=== PATIENT | male | born 1955 | race Caucasian/White ===

== ENCOUNTER 2025-06-09 10:18 | Outpatient (AMB) | payer OTHER, SELFPAY ==
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
[2025-06-09 10:29] VITALS: BP 123/75; PULSE 69
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
--- OUTSIDE RECORDS SUMMARY | 2025-06-09 12:39 | XMS_ITS | Encounter Summary ---
Author Organization [facility] Address [address] [place] [address] Care Team Providers Care Babysitter Name Role Phone Carmen Saleh MD Primary Care Prov ider Encounter Details Date Type Department Care Team (Late st Contact Info) Description 04/23/2025 Lab Requisition [facility] Lab [address] [facility] [place] [address] Fantasma Pretty PA [address] [place] [phone] Gross hematuria Social History Tobacco Use Types Packs/Day Years Used Date Smoking Tobacco: Never Smokeless Tobacco: Never Alcohol Use Standard Drinks/Week Comments Yes 0 (1 standard drink = 0.6 oz pur e alcohol) Sex and Gender Information Value Date Recorded Sex Assigned at Not on file Legal Sex Male 4:54 AM EST Gender Identity Not on file Sexual Orientation Not on file documented as of this encounter Plan of Treatment Upcoming Encounters Date Type Department Care Team (Late st Contact Info) Description 08/27/2025 8:45 AM EST Office Visit Adult Medicine [address] [phone] Carmen Saleh MD [address] [place] [address] documented as of this encounter Procedures Procedure Name Priority Date/Time Associated Diagnosis Comments NON-GYNECOLOGIC CYTOLOGY Routine 04/15/2025 12:00 AM EDT Gross hematuria documented in this encounter Results * Non-gynecologic cytology (04/15/2025 12:00 AM EDT) Final Diagnosis A. Urine, Voided, [id number]: Negative for high grade urothelial carcinoma. Results of [employer] fluorescence in situ hybridization (FISH) testing: CEP3: Normal CEP7: Normal CEP17: Normal LSI 9p21: Normal Interpretation: Normal profile Controls stained appropriately. Note: The results are intended as a screening device and should be interpreted in association with other clinical and pathological findings. 05/06/2025 4:48 PM EDT [facility] Specimen A Adequacy Satisfactory for evaluation 05/06/2025 4:48 PM EDT [facility] Clinical Information Gross hematuria R31.0 Urine Cytology/FISH (now) 05/06/2025 4:48 PM EDT [facility] Gross Description A. Urine, Voided, [id number]: Received one ThinPrep slide for cytology and one ThinPrep slide for [employer]ion FISH 05/06/2025 4:48 PM EDT [facility] Disclaimer Unless otherwise specified, all tissue is 10% NB formalin fixed and paraffin embedded. Technical pathology services provided by [facility] at [address] [place] [address] [address], [place] [address] (CLIA #[id number]/Clarice Bull MD, Roll Coating Machine Operator) 05/06/2025 4:48 PM EDT [facility] Urine Urine specimen from urethra / Unknown 04/15/2025 04/23/2025 10:54 AM EDT us Fantasma LOTT LAB CYTOLOGY ORDERABL ES Final Result [facility] [address] [place] [address], documented in this encounter Visit Diagnoses Diagnosis Gross hematuria documented in this encounter Care Teams Babysitter Relationship Specialty Start Date End Date Carmen Saleh MD [address] [place] [address] [phone] PCP - General Internal Medicine 08/10/24 documented as of this encounter
--- OUTSIDE RECORDS SUMMARY | 2025-06-09 12:39 | XMS_ITS | Encounter Summary ---
Author Organization [facility] Address [address] [place] [address] Care Team Providers Care Cosmetologist Apprentice Name Role Phone Carmen Saleh MD Primary Care Prov ider Encounter Details Date Type Department Care Team (Late Contact Info) Description 05/05/2025 Lab Requisition [facility] - [facility] Lab [address] [facility] [place] [phone] Mariusz Chapin MD [address] [place] [address] Gross hematuria Social History Tobacco Use Types [...] 8:45 AM EST Office Visit Adult Medicine [address] [phone] Carmen Saleh MD [address] [place] [address] documented as of this encounter Procedures Procedure Name Priority Date/Time Associated Diagnosis Comments NON-GYNECOLOGIC CYTOLOGY Routine 05/02/2025 12:00 AM EDT Gross hematuria documented in this encounter Results * Non-gynecologic cytology (05/02/2025 12:00 AM EDT) Final Diagnosis A. Urine, Voided, (): Negative for high grade urothelial carcinoma. Acute inflammation present. 06/04/2025 5:07 PM EDT [facility] Specimen A Adequacy Satisfactory for evaluation 06/04/2025 5:07 PM EDT [facility] Clinical Information Gross hematuria R31.0 Urine Cytology (now) 06/04/2025 5:07 PM EDT [facility] Gross Description A. Urine, Voided, (): Received is one ThinPrep slide for cytology. 06/04/2025 5:07 PM EDT [facility] Disclaimer Unless otherwise specified, all tissue is 10% NB formalin fixed and paraffin embedded. Technical pathology services provided by [facility] at [address], [place] [address] (CLIA #[id number]/Anival Bull MD, Mold Filling Operator) 06/04/2025 5:07 PM EDT [facility] Urine Urine specimen from urethra / Unknown 05/02/2025 05/05/2025 2:48 PM EDT us Mariusz Chapin MD LAB CYTOLOGY ORDERABLES Fin al Result [facility] [address] [place] [address], documented in this encounter Visit Diagnoses Diagnosis Gross hematuria documented in this encounter Care Teams Cosmetologist Apprentice Relationship Specialty Start Date End Date Carmen Saleh MD [address] [place], [place] PCP - General Internal Medicine 08/10/24 documented as of this encounter
== END 2025-06-09 10:58 | disposition home or self-care (01) ==
LOC: HO.PMC 10:18
PROVIDERS: PCP Internal Medicine; Visit Provider Nurse Practitioner Family
DX: M25.511 Pain in right shoulder (principal); G89.29 Other chronic pain; Z98.890 Other specified postprocedural states; Z87.828 Personal history of other (healed) physical injury and trauma; Z89.021 Acquired absence of right finger(s); R20.0 Anesthesia of skin; R20.2 Paresthesia of skin
CPT/HCPCS: 99204

== ENCOUNTER → 2025-06-09 10:18 | Outpatient (BNVA) | payer OTHER, SELFPAY | PROVIDERS: PCP Internal Medicine; Visit Provider Nurse Practitioner Family | DX: M25.511 Pain in right shoulder (principal); G89.29 Other chronic pain; R20.0 Anesthesia of skin; R20.2 Paresthesia of skin; Z89.021 Acquired absence of right finger(s); Z87.828 Personal history of other (healed) physical injury and trauma | CPT/HCPCS: 99202 ==

== ENCOUNTER 2025-07-30 12:25 | Outpatient (REF) | payer OTHER, SELFPAY ==
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
--- OUTSIDE RECORDS SUMMARY | 2025-07-30 15:04 | XMS_ITS | Clinical Summary ---
Author Organization [facility] Address [address] [place] [address] Phone Care Team Providers Care Smelter Operator Name Role Phone Carmen Saleh MD Primary Care Prov ider Allergies No known active allergies Medications Mapap, acetaminophen, 500 mg capsule Take 2 capsules (1,000 mg total) by mouth 3 (three) times a day if needed for mild pain or moderate pain. 90 capsule 2 03/14/2025 Active gabapentin (NEURONTIN) 100 mg capsule Take 1 capsule (100 mg total) by mouth 3 (three) times a day. 180 capsule 2 03/14/2025 Active fluticasone propionate (FLONASE) 50 mcg/actuation nasal spray INSTILL 2 SPRAYS INTO BOTH NOSTRILS ONCE DAILY 48 mL 1 04/07/2025 Active cetirizine (ZyrTEC) 10 mg tablet TAKE 1 TABLET BY MOUTH 1 TIME EACH DAY. 90 tablet 1 04/21/2025 Active losartan-hydroC HLOROthiazide (HYZAAR) 100-25 mg per tablet Take 1 tablet by mouth 1 (one) time each day. 90 tablet 05/14/2025 Active amLODIPine (NORVASC) 10 mg tablet Take 1 tablet (10 mg total) by mouth 1 (one) time each day. 90 tablet 05/14/2025 Active Active Problems Problem Noted Date Diagnosed Date S/P surgical amputation of finger, right 025 Lumbar disc disorder 08/27/2024 Overview (08/27/2024): fusion in 2001 and 2004 in [place] Lumbar spondylosis 04/25/2023 Overview (08/27/2024): Last Assessment [...] weakness. He is s/p L4-5 fusion in [place] 2003, states on and off over the years he has had to do physical therapy for flareups of back pain but it always seemed to help him. Patient had lumbar spine x-rays 03/04/2023 [facility] that show good fusion construct, hardware intact, [...] Renal cyst 03/28/2022 Overview (08/27/2024): Follows with [facility] urology. Type 2 diabetes mellitus wit hout complication, without long-term current use of insulin ([facility] V24, [facility] V28) 02/03/2022 Microalbuminuria 02/02/2022 Varicose veins of both lower extremities 021 Class 1 obesity due to exces s calories with serious comorbidity and body mass index (BMI) of 30.0 to 30.9 in adult 07/29/2020 Insomnia 03/15/2017 Major depression 03/15/2017 Allergic rhinitis 01/16/2017 Overview (08/27/2024): On immunotherapy with surveyor at [facility] BPH (benign prostatic hyperplasia) 01/16/2017 Overview (08/27/2024): [...] 8:00 AM EDT Office Visit Adult Medicine [address] [phone] Lorrie Modi PA Type 2 diabetes mellitus without complication, without long-term current use of insulin ([facility] V24, [facility] V28) (Primary Dx); Primary hypertension; Microalbuminuria; Class [...] determinants of health (SDoH) 05/05/2025 Lab Requisition [facility] - Main Lab [address] [facility] [place] [address] Mariusz Chapin MD Gross hematuria from Last 3 Months Immunizations Immunization Administration Dates Next Due Influenza Quadravalent, MDCK [...] History Surgery Date Site/Laterality Comments BACK SURGERY RI ARTHRD ANT INTERBODY MIN DSC LUMBAR; 2001, 2003 COLONOSCOPY 01/10/11 PROCEDURE: HISTORICAL COLONOSCOPY; COMMENT: normal; repeat in ten years HAND SURGERY 08/14/2024 Left ORIF left wrist Medical History Medical History Date Comments History of tuberculosis DX:Histo ry of tuberculosis; COMMENT: treated in 1990 Lumbar disc disorder DX:Lumbar d isc disorder; COMMENT: 2001 and L4-5 fusion 2003 in [place] Hematuria 01/14/2016 DX:Hematuria; CO MMENT: Per transfer [...] for your loved ones. For example, child development assistant or elderly care for an older adult? [...] Date Recorded What is your living situation? Unrecognized valu e 05/14/2025 Sex and Gender Information Value Date [...] Team (Late st Contact Info) Description 08/27/2025 8:30 AM EST Office Visit Adult Medicine [facility] [address] [place] [address] Lorrie Modi PA [address] [place], [place] Health Maintenance Due Date Last Done Comments Diabetes: Annual Retina Eye Exam 1967 RSV Immunization Adult Patients (1 - Risk 50-74 years 1-dose series) 2007 Zoster Vaccines (2 of 2) 07/03/2022 05/08/2022 [...] Routine 05/02/2025 12:00 AM EDT Gross hematuria URINE ALBUMIN [...] Acute inflammation present. 06/04/2025 5:07 PM EDT [facility] Specimen A Adequacy Satisfactory for evaluation 06/04/2025 5:07 PM EDT [facility] Clinical Information Gross hematuria R31.0 Urine Cytology (now) 06/04/2025 5:07 PM EDT [facility] Gross Description A. Urine, Voided, (): Received is one ThinPrep slide for cytology. 06/04/2025 5:07 PM EDT [facility] Disclaimer Unless otherwise specified, all tissue is 10% NB formalin fixed and paraffin embedded. Technical pathology services provided by [facility]rology at [facility] [address] [place] [address] (CLIA #[id number]/Anival Bull MD, Smocking Machine Operator) 06/04/2025 5:07 PM EDT [facility] Urine Urine specimen from urethra / Unknown 05/02/2025 05/05/2025 2:48 PM EDT us Mariusz Chapin MD LAB CYTOLOGY ORDERABLES Fin al Result [facility] [address] [place] [address], * Urine Albumin Creatinine Ratio (05/30/2024) Pathologist [facility] Urine Albumin Creatinine Ratio abstracted Result [facility] Provider HEALTH MAINTENANCE Final Result * Annual BMP Blood Test (05/30/2024) Pathologist [facility] Annual BMP Blood Test abstracted Result [facility] Provider HEALTH MAINTENANCE Final Result * Hemoglobin A1c (05/30/2024) [facility] Hemoglobin A1C 6.5 <=6.5 % Blood Venous blood specimen / Unknown Result [facility] Provider LAB BLOOD ORDERABLES Didi l Result * Depression Screening (04/05/2024) Pathologist [facility] Depression Screening abstracted Result [facility] Provider HEALTH MAINTENANCE Final Result * Lipid panel (11/20/2023) [facility] LDL/HDL Ratio 2 0 - 4 Triglycerides 82 0 - 150 mg/dL Cholesterol 157 0 - 200 mg/dL HDL 68 >=40 mg/dL LDL Cholesterol 73 0 - 100 mg/dL Blood Venous blood specimen / Unknown Result [facility] Provider LAB BLOOD ORDERABLES Didi l Result * Colonoscopy (09/13/2021) [facility] Colonoscopy abstracted, no interpretation Anatomical Region Laterality Modality Other Result [facility] Provider HEALTH MAINTENANCE Final Result * Hepatitis C Screening (02/16/2016) [facility] Hepatitis C Screening abstracted Result [facility] Provider HEALTH MAINTENANCE Final Result from Last 3 Months or Most Recently Relevant to Health Maintenance Insurance * Guarantor: Franky Rao Account Type Relation to Patient Date of Phone Billing Address Personal/Family Self 1955 [address] [place] [address] [facility] MEDICAID [place]ER [id number] Care Teams Smelter Operator Relationship Specialty Start Date End Date Carmen Saleh MD [address] [place] [phone] PCP - General Internal Medicine 08/10/24
--- OUTSIDE RECORDS SUMMARY | 2025-07-30 15:04 | XMS_ITS | Encounter Summary ---
Author Organization [facility] Address [address] [place] [address] Care Team Providers Care Cloud Software Engineer Name Role Phone Carmen Saleh MD Primary Care Prov ider Encounter Details Date Type Department Care Team (Late st Contact Info) Description 04/23/2025 Lab Requisition [facility] - Main Lab [address] [facility] [place] [address] Fantasma Pretty PA [address] [place] [phone] Gross hematuria Social History Tobacco Use Types [...] 8:30 AM EST Office Visit Adult Medicine [address] [phone] Lorrie Modi PA [address] [place], [place] documented as of this encounter Procedures Procedure Name Priority Date/Time Associated Diagnosis Comments NON-GYNECOLOGIC CYTOLOGY Routine 04/15/2025 12:00 AM EDT Gross hematuria documented in this encounter Results * Non-gynecologic cytology (04/15/2025 12:00 AM EDT) Final Diagnosis A. Urine, Voided, [id number]: Negative for high grade urothelial carcinoma. Results of UroVysion fluorescence in situ hybridization (FISH) testing: CEP3: Normal CEP7: Normal CEP17: Normal LSI 9p21: Normal Interpretation: Normal profile Controls stained appropriately. Note: The results are intended as a screening device and should be interpreted in association with other clinical and pathological findings. 05/06/2025 4:48 PM EDT [facility] Specimen A Adequacy Satisfactory for evaluation 05/06/2025 4:48 PM EDT [facility] Clinical Information Gross hematuria R31.0 Urine Cytology/FISH (now) 05/06/2025 4:48 PM EDT [facility] Gross Description A. Urine, Voided, [id number]: Received one ThinPrep slide for cytology and one ThinPrep slide for UroVysion FISH 05/06/2025 4:48 PM EDT [facility] Disclaimer Unless otherwise specified, all tissue is 10% NB formalin fixed and paraffin embedded. Technical pathology services provided by [facility] Urology at [address] [place] [address] [address], [place] [address] (CLIA #[id number]/Clarice Bull MD, Sales And Service Change Leader) 05/06/2025 4:48 PM EDT [facility] Urine Urine specimen from urethra / Unknown 04/15/2025 04/23/2025 10:54 AM EDT us Fantasma LOTT LAB CYTOLOGY ORDERABL ES Final Result [facility] [address] [place] [address], documented in this encounter Visit Diagnoses Diagnosis Gross hematuria documented in this encounter Care Teams Cloud Software Engineer Relationship Specialty Start Date End Date Carmen Saleh MD [address] [place] [phone] PCP - General Internal Medicine 08/10/24 documented as of this encounter
--- OUTSIDE RECORDS SUMMARY | 2025-07-30 15:04 | XMS_ITS | Encounter Summary ---
Author Organization [facility] Address [address] [place] [address] Care Team Providers Care Interventional Tech Name Role Phone Carmen Saleh MD Primary Care Prov ider Encounter Details Date Type Department Care Team (Late st Contact Info) Description 05/05/2025 Lab Requisition [facility] - Main Lab [address] [facility] [place] [phone] Mariusz Chapin MD [address] [place] [address] Gross hematuria Social History Tobacco Use Types [...] 8:30 AM EST Office Visit Adult Medicine [address] [phone] Lorrie Modi PA [address] [place] [address] documented as of this encounter Procedures Procedure Name Priority Date/Time Associated Diagnosis Comments NON-GYNECOLOGIC CYTOLOGY Routine 05/02/2025 12:00 AM EDT Gross hematuria documented in this encounter Results * Non-gynecologic cytology (05/02/2025 12:00 AM EDT) Final Diagnosis A. Urine, Voided, (): Negative for high grade urothelial carcinoma. Acute inflammation present. 06/04/2025 5:07 PM EDT [facility] Specimen A Adequacy Satisfactory for evaluation 06/04/2025 5:07 PM EDT [facility] Clinical Information Gross hematuria R31.0 Urine Cytology (now) 06/04/2025 5:07 PM EDT [facility] Gross Description A. Urine, Voided, (): Received is one ThinPrep slide for cytology. 06/04/2025 5:07 PM EDT [facility] Disclaimer Unless otherwise specified, all tissue is 10% NB formalin fixed and paraffin embedded. Technical pathology services provided by [facility] Urology at [address], [place] [address] (CLIA #[id number]/Anival Bull MD, Souvenir And Novelty Maker) 06/04/2025 5:07 PM EDT [facility] Urine Urine specimen from urethra / Unknown 05/02/2025 05/05/2025 2:48 PM EDT us Mariusz Chapin MD LAB CYTOLOGY ORDERABLES Fin al Result [facility]) [facility] [address] [place] [address], documented in this encounter Visit Diagnoses Diagnosis Gross hematuria documented in this encounter Care Teams Interventional Tech Relationship Specialty Start Date End Date Carmen Saleh MD [address] [place] [phone] PCP - General Internal Medicine 08/10/24 documented as of this encounter
== END 2025-07-30 12:26 | disposition home or self-care (01) ==
LOC: HO.NEURO 12:25
PROVIDERS: PCP Internal Medicine; Visit Provider Nurse Practitioner Family
DX: G89.29 Other chronic pain (principal); M25.511 Pain in right shoulder; R20.0 Anesthesia of skin; R20.2 Paresthesia of skin; Z89.021 Acquired absence of right finger(s); Z87.828 Personal history of other (healed) physical injury and trauma; Z98.890 Other specified postprocedural states
CPT/HCPCS: 95886; 95911

== ENCOUNTER → 2025-07-30 12:29 | Outpatient (BNV) | payer OTHER, SELFPAY | PROVIDERS: PCP Internal Medicine; Visit Provider Physical Medicine & Rehabilitation | DX: G56.02 Carpal tunnel syndrome, left upper limb (principal); G54.9 Nerve root and plexus disorder, unspecified | CPT/HCPCS: 95886; 95911 ==

== ENCOUNTER 2025-09-04 06:25 | Outpatient (REF) | payer OTHER, SELFPAY ==
--- OUTSIDE RECORDS SUMMARY | 2025-09-04 06:27 | XMS_ITS | Encounter Summary ---
Author Organization [facility] Address [address] [place] [address] Care Team Providers Care Party Plan Sales Unit Advisor Name Role Phone Carmen Saleh MD Primary Care Prov ider Encounter Details Date Type Department Care Team (Late st Contact Info) Description 05/05/2025 Lab Requisition [facility] - Main Lab [address] [place] [phone] Mariusz Chapin MD [address] [place] [address] Gross hematuria Social History Tobacco Use Types [...] as of this encounter Plan of Treatment Not on file documented as of this encounter Procedures Procedure Name Priority Date/Time Associated Diagnosis Comments NON-GYNECOLOGIC CYTOLOGY Routine 05/02/2025 12:00 AM EDT Gross hematuria documented in this encounter Results * Non-gynecologic cytology (05/02/2025 12:00 AM EDT) Final Diagnosis A. Urine, Voided, ([id number]): Negative for high grade urothelial carcinoma. Acute inflammation present. 06/04/2025 5:07 PM EDT [facility] LAB at 1707 EDT Specimen A Adequacy Satisfactory for evaluation 06/04/2025 5:07 PM EDT [facility] Clinical Information Gross hematuria R31.0 Urine Cytology (now) 06/04/2025 5:07 PM EDT [facility] Gross Description A. Urine, Voided, ([id number]): Received is one ThinPrep slide for cytology. 06/04/2025 5:07 PM EDT [facility] Disclaimer Unless otherwise specified, all tissue is 10% NB formalin fixed and paraffin embedded. Technical pathology services provided by [facility] Urology at [address] [facility] [address], [place] [address] (CLIA #[id number]/Anival Bull MD, Brush And Broom Clipper) 06/04/2025 5:07 PM EDT [facility] Urine Urine specimen from urethra / Unknown 05/02/2025 05/05/2025 2:48 PM EDT us Mairusz Chapin MD LAB CYTOLOGY ORDERABLES Fin al Result [facility] [address] [place] [address], documented in this encounter Visit Diagnoses Diagnosis Gross hematuria documented in this encounter Care Teams Party Plan Sales Unit Advisor Relationship Specialty Start Date End Date Carmen Saleh MD [address] [place] [phone] PCP - General Internal Medicine 08/10/24 documented as of this encounter
--- OUTSIDE RECORDS SUMMARY | 2025-09-04 06:27 | XMS_ITS | Clinical Summary ---
Author Organization [facility] Address [address] [place] [address] Phone Care Team Providers Care Yarn Packer Name Role Phone Carmen Saleh MD Primary [...] weakness. He is s/p L4-5 fusion in [place] 2003, states on and off over the years he has had to do physical therapy for flareups of back pain but it always seemed to help him. Patient had lumbar spine x-rays 03/04/2023 [facility] that show good fusion construct, hardware intact, [...] Renal cyst 03/28/2022 Overview (08/27/2024): Follows with [facility] urology. Type 2 diabetes mellitus wit hout complication, without long-term current use of insulin 02/03/2022 Microalbuminuria 02/02/2022 Varicose veins of both lower extremities 021 Class 1 obesity due to exces s calories with serious comorbidity and body mass index (BMI) of 30.0 to 30.9 in adult 07/29/2020 Insomnia 03/15/2017 Major depression 03/15/2017 Allergic rhinitis 01/16/2017 Overview (08/27/2024): On immunotherapy with fulfillment specialist at [facility] BPH (benign prostatic hyperplasia) 01/16/2017 Overview (08/27/2024): Follows with Back pain 04/06/2016 Fatty liver 04/06/2016 Hematuria 01/14/2016 Overview (08/27/2024): Per transfer note had cystoscopy and bladder US / neg urine cytology 2014 HTN (hypertension) 01/14/2016 Lipoma 11/29/2010 Resolved Problems Problem Noted Date Diagnosed Date Resolved Date Overweight (BMI 25.0-29.9) 05/14/2025 0 05/14/2025 Immunizations Immunization Administration Dates Next Due Influenza [...] History Surgery Date Site/Laterality Comments BACK SURGERY [place] ANT INTERBODY MIN DSC LUMBAR; 2001, 2003 COLONOSCOPY 01/10/11 PROCEDURE: HISTORICAL COLONOSCOPY; COMMENT: normal; repeat in ten years HAND SURGERY 08/14/2024 Left ORIF left wrist Medical History Medical History Date Comments History of tuberculosis DX:Histo ry of tuberculosis; COMMENT: treated in 1990 Lumbar disc disorder DX:Lumbar d isc disorder; COMMENT: 2001 and L4-5 fusion 2003 in [place] Hematuria 01/14/2016 DX:Hematuria; CO MMENT: Per transfer [...] care for your loved ones. For example, early childhood teacher assistant or elderly care for an older [...] on file Sexual Orientation Not on file Last Filed Vital Signs Vital Sign Reading [...] 05/14/2025 7:49 AM EDT Plan of Treatment Health Maintenance Due Date Last Done Comments [...] Procedure Name Priority Date/Time Associated Diagnosis Comments URINE ALBUMIN CREATININE RATIO Routine 05/30/2024 ANNUAL BMP BLOOD TEST Routine 05/30/2024 HEMOGLOBIN A1C Routine 05/30/2024 DEPRESSION SCREENING Routine 04/05/2024 LIPID PANEL Routine 11/20/2023 COLONOSCOPY Routine 09/13/2021 HEPATITIS C SCREENING Routine 02/16/2016 from Last 3 Months or Most Recently Relevant to Health Maintenance Results * Urine Albumin Creatinine Ratio (05/30/2024) Pathologist [facility] Urine Albumin Creatinine Ratio abstracted Result [facility] Provider HEALTH MAINTENANCE Final Result * Annual BMP Blood Test (05/30/2024) Pathologist [facility] Annual BMP Blood Test abstracted Result [facility] Provider HEALTH MAINTENANCE Final Result * Hemoglobin A1c (05/30/2024) [facility] Hemoglobin A1C 6.5 <=6.5 % Blood Venous blood specimen / Unknown Result [facility] Provider LAB BLOOD ORDERABLES Didi l Result * Depression Screening (04/05/2024) Pathologist [facility] Depression Screening abstracted Result [facility] Provider HEALTH MAINTENANCE Final Result * Lipid panel (11/20/2023) [facility] LDL/HDL Ratio 2 0 - 4 Triglycerides 82 0 - 150 mg/dL Cholesterol 157 0 - 200 mg/dL HDL 68 >=40 mg/dL LDL Cholesterol 73 0 - 100 mg/dL Blood Venous blood specimen / Unknown Historical Provider LAB BLOOD ORDERABLES Didi l Result * Colonoscopy (09/13/2021) Pathologist [facility] Colonoscopy abstracted, no interpretation Anatomical Region Laterality Modality Other Historical Provider HEALTH MAINTENANCE Final Result * Hepatitis C Screening (02/16/2016) [facility] Hepatitis C Screening abstracted Historical Provider HEALTH MAINTENANCE Final Result from Last 3 Months or Most Recently Relevant to Health Maintenance Insurance * Guarantor: Franky Rao Account Type Relation to Patient Date of Phone Billing Address Personal/Family Self 1955 [address] [place] [address] [facility] MEDICAID [place] [id number] Care Teams Yarn Packer Relationship Specialty Start Date End Date Carmen Saleh MD [address] [place] [address] PCP - General Internal Medicine 08/10/24
--- OUTSIDE RECORDS SUMMARY | 2025-09-04 06:27 | XMS_ITS | Encounter Summary ---
Author Organization [employer] Address [address] [place] [address] Care Team Providers Care Bag Cutter Name Role Phone Carmen Saleh MD Primary Care Prov ider Encounter Details Date Type Department Care Team (Late st Contact Info) Description 04/23/2025 Lab Requisition [facility] - Main Lab [address] [facility] [place] [place] [phone] Fantasma Pretty PA [address] [place] [phone] Gross hematuria Social History Tobacco Use Types [...] AM EDT) Final Diagnosis A. Urine, Voided, [id number]: Negative for high grade urothelial carcinoma. Results of UroVysion fluorescence in situ hybridization (FISH) testing: CEP3: Normal CEP7: Normal CEP17: Normal LSI 9p21: Normal Interpretation: Normal profile Controls stained appropriately. Note: The results are intended as a screening device and should be interpreted in association with other clinical and pathological findings. 05/06/2025 4:48 PM EDT [facility] at 1648 EDT Specimen A Adequacy Satisfactory for evaluation 05/06/2025 4:48 PM EDT [facility] Clinical Information Gross hematuria R31.0 Urine Cytology/FISH (now) 05/06/2025 4:48 PM EDT [facility] Gross Description A. Urine, Voided, [id number]: Received one ThinPrep slide for cytology and one ThinPrep slide for UroVysion FISH 05/06/2025 4:48 PM EDT [facility] Disclaimer Unless otherwise specified, all tissue is 10% NB formalin fixed and paraffin embedded. Technical pathology services provided by [facility] at [address] [facility] [address], [place] [address] (CLIA #[id number]/Clarice Bull MD, Machinist Brake) 05/06/2025 4:48 PM EDT [facility] Urine Urine specimen from urethra / Unknown 04/15/2025 04/23/2025 10:54 AM EDT us Fantasma LOTT LAB CYTOLOGY ORDERABL ES Final Result [facility] [address] [place] [address], documented in this encounter Visit Diagnoses Diagnosis Gross hematuria documented in this encounter Care Teams Bag Cutter Relationship Specialty Start Date End Date Carmen Saleh MD [address] [place] [phone] PCP - General Internal Medicine 08/10/24 documented as of this encounter
== END 2025-09-04 06:26 | disposition home or self-care (01) ==
LOC: CF 06:25
PROVIDERS: Visit Provider Internal Medicine
DX: G56.41 Causalgia of right upper limb (principal)
CPT/HCPCS: 64510; 77003; J2795

== ENCOUNTER 2025-09-04 11:43 | Outpatient (AMB) | payer OTHER, SELFPAY ==
[2025-09-04 11:53] VITALS: BP 110/70; PULSE 79; RESP 16; O2SAT 97
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
[2025-09-04 12:11] VITALS: BP 110/70; PULSE 73; RESP 16; O2SAT 97
--- OUTSIDE RECORDS SUMMARY | 2025-09-04 15:27 | XMS_ITS | Clinical Summary ---
Author Organization [facility] Address [address] [place] [address] Phone Care Team Providers Care Clinical Research Technician Name Role Phone Carmen Saleh MD Primary [...] weakness. He is s/p L4-5 fusion in [place] 2003, states on and off over the years he has had to do physical therapy for flareups of back pain but it always seemed to help him. Patient had lumbar spine x-rays 03/04/2023 [facility] that show good fusion construct, hardware [...] Renal cyst 03/28/2022 Overview (08/27/2024): Follows with [facility] urology. Type 2 diabetes mellitus wit hout complication, without long-term current use of insulin 02/03/2022 Microalbuminuria 02/02/2022 Varicose veins of both lower extremities 021 Class 1 obesity due to exces s calories with serious comorbidity and body mass index (BMI) of 30.0 to 30.9 in adult 07/29/2020 Insomnia 03/15/2017 Major depression 03/15/2017 Allergic rhinitis 01/16/2017 Overview (08/27/2024): On immunotherapy with wire bender at [facility] BPH (benign prostatic hyperplasia) 01/16/2017 Overview (08/27/2024): [...] History Surgery Date Site/Laterality Comments BACK SURGERY [place] ARTHRD ANT INTERBODY MIN DSC LUMBAR; 2001, 2003 COLONOSCOPY 01/10/11 PROCEDURE: HISTORICAL COLONOSCOPY; COMMENT: normal; repeat in ten years HAND SURGERY 08/14/2024 Left ORIF left wrist Medical History Medical History Date Comments History of tuberculosis DX:Histo ry of tuberculosis; COMMENT: treated in 1990 Lumbar disc disorder DX:Lumbar d isc disorder; COMMENT: 2001 and L4-5 fusion 2003 in [place] Hematuria 01/14/2016 DX:Hematuria; CO MMENT: Per transfer [...] for your loved ones. For example, child welfare worker or elderly care for an older adult? [...] * Urine Albumin Creatinine Ratio (05/30/2024) Pathologist [facility] Urine Albumin Creatinine Ratio abstracted Result [facility] Provider HEALTH MAINTENANCE Final Result * Annual BMP Blood Test (05/30/2024) Pathologist [facility] Annual BMP Blood Test abstracted Result [facility] Provider HEALTH MAINTENANCE Final Result * Hemoglobin A1c (05/30/2024) [facility] Hemoglobin A1C 6.5 <=6.5 % Blood Venous blood specimen / Unknown Result [facility] Provider LAB BLOOD ORDERABLES Didi l Result * Depression Screening (04/05/2024) Pathologist [facility] Depression Screening abstracted Result [facility] Provider HEALTH MAINTENANCE Final Result * Lipid panel (11/20/2023) [facility] LDL/HDL Ratio 2 0 - 4 Triglycerides 82 0 - 150 mg/dL Cholesterol 157 0 - 200 mg/dL HDL 68 >=40 mg/dL LDL Cholesterol 73 0 - 100 mg/dL Blood Venous blood specimen / Unknown Historical Provider LAB BLOOD ORDERABLES Didi l Result * Colonoscopy (09/13/2021) Pathologist [facility] Colonoscopy abstracted, no interpretation Anatomical Region Laterality Modality Other Historical Provider HEALTH MAINTENANCE Final Result * Hepatitis C Screening (02/16/2016) [facility] Hepatitis C Screening abstracted Historical Provider HEALTH MAINTENANCE Final Result from Last 3 Months or Most Recently Relevant to Health Maintenance Insurance * Guarantor: Franky Rao Account Type Relation to Patient Date of Phone Billing Address Personal/Family Self 1955 [address] [place] [address] [facility] MEDICAID [place] [id number] Care Teams Clinical Research Technician Relationship Specialty Start Date End Date Carmen Saleh MD [address] [place] [phone] PCP - General Internal Medicine 08/10/24
--- OUTSIDE RECORDS SUMMARY | 2025-09-04 15:27 | XMS_ITS | Encounter Summary ---
Author Organization [facility] Address [address] [place] [address] Care Team Providers Care Protection Officer Name Role Phone Carmen Saleh MD Primary Care Prov ider Encounter Details Date Type Department Care Team (Late st Contact Info) Description 05/05/[address] [facility] - Main Lab [address] [place] [phone] Mariusz Chapin MD [address] [place] [address] Gross hematuria Social History Tobacco Use Types [...] AM EDT) Final Diagnosis A. Urine, Voided, ([id number]): Negative for high grade urothelial carcinoma. Acute inflammation present. 06/04/2025 5:07 PM EDT [facility] HOSPITAL LAB at 1707 EDT Specimen A Adequacy Satisfactory for evaluation 06/04/2025 5:07 PM EDT [facility] Clinical Information Gross hematuria R31.0 Urine Cytology (now) 06/04/2025 5:07 PM EDT [facility] Gross Description A. Urine, Voided, ([id number]): Received is one ThinPrep slide for cytology. 06/04/2025 5:07 PM EDT [facility] Disclaimer Unless otherwise specified, all tissue is 10% NB formalin fixed and paraffin embedded. Technical pathology services provided by [facility] [address] [address] [place] [address] (CLIA #[id number]/Anival Bull MD, Senior Unix Administrator) 06/04/2025 5:07 PM EDT [facility] Urine Urine specimen from urethra / Unknown 05/02/2025 05/05/2025 2:48 PM EDT us Mariusz Chapin MD LAB CYTOLOGY ORDERABLES Fin al Result [facility] [address] [place] [address], documented in this encounter Visit Diagnoses Diagnosis Gross hematuria documented in this encounter Care Teams Protection Officer Relationship Specialty Start Date End Date Carmen Saleh MD [address] [place] [phone] PCP - General Internal Medicine 08/10/24 documented as of this encounter
--- OUTSIDE RECORDS SUMMARY | 2025-09-04 15:27 | XMS_ITS | Encounter Summary ---
Author Organization [employer] Address [address] [place] [address] Care Team Providers Care Account Specialist Name Role Phone Carmen Saleh MD Primary Care Prov ider Encounter Details Date Type Department Care Team (Late st Contact Info) Description 04/23/2025 Lab Requisition [facility] - Main Lab [address] [facility] [place] [phone] Fantasma Pretty PA [address] [place] [phone] Gross hematuria Social History Tobacco Use Types [...] AM EDT) Final Diagnosis A. Urine, Voided, [id number]: Negative for high grade urothelial carcinoma. Results of UroVysion fluorescence in situ hybridization (FISH) testing: CEP3: Normal CEP7: Normal CEP17: Normal LSI 9p21: Normal Interpretation: Normal profile Controls stained appropriately. Note: The results are intended as a screening device and should be interpreted in association with other clinical and pathological findings. 05/06/2025 4:48 PM EDT [facility] at 1648 EDT Specimen A Adequacy Satisfactory for evaluation 05/06/2025 4:48 PM EDT [facility] Clinical Information Gross hematuria R31.0 Urine Cytology/FISH (now) 05/06/2025 4:48 PM EDT [facility] Gross Description A. Urine, Voided, [id number]: Received one ThinPrep slide for cytology and one ThinPrep slide for UroVysion FISH 05/06/2025 4:48 PM EDT [facility] Disclaimer Unless otherwise specified, all tissue is 10% NB formalin fixed and paraffin embedded. Technical pathology services provided by [facility] [address] [facility] [address] [place] [address] (CLIA #[id number]/Clarice Bull MD, Occupational Health Specialist) 05/06/2025 4:48 PM EDT [facility] Urine Urine specimen from urethra / Unknown 04/15/2025 04/23/2025 10:54 AM EDT us Fantasma LOTT LAB CYTOLOGY ORDERABL ES Final Result [facility] [address] [place] [address], documented in this encounter Visit Diagnoses Diagnosis Gross hematuria documented in this encounter Care Teams Account Specialist Relationship Specialty Start Date End Date Carmen Saleh MD [address] [place] [phone] PCP - General Internal Medicine 08/10/24 documented as of this encounter
== END 2025-09-04 12:20 | disposition home or self-care (01) ==
LOC: HO.PMCPRC 11:43
PROVIDERS: PCP Internal Medicine; Visit Provider Internal Medicine
DX: G56.41 Causalgia of right upper limb (principal)
CPT/HCPCS: 64510; 77003